=== PATIENT | male | born 1980 | race Caucasian/White ===

== ENCOUNTER → 2017-08-09 | Day surgery (SDC) | payer BC ==
[2017-08-02 14:38] VITALS: BMI 52.0
[~2017-08-09] VITALS: Ht 182.9 cm; Wt 172.7 kg
[~2017-08-09] MED LIST: ADVIN25/60 INH; AMLO10TA2 PO; BENA1TAB19 PO; CITA20TA4 PO; HYDR25TA4 PO; KETAMINE HCL INJ 50 MG/ML 10 ML VIAL ONE; LIDOCAINE HCL 2% 2 ML VIAL (20MG/ML) ONE; MIDAZOLAM HCL 1 MG/ML 2ML VIAL ONE; OMEP20CA9 PO; PROPOFOL IV EMULSION 10 MG/ML 20 ML VIAL IV ONE; SODIUM CHLORIDE 0.9% 500ML 500 ML IV ONE; VNTHFA/IN INH
[2017-08-09 13:55] VITALS: Ht 182.9 cm; Wt 172.7 kg
--- NOTE | 2017-08-09 13:58 | Endo History and Physical ---
History & Physical Date of Service: Aug 09, 2017. Chief Complaint: reflux Referring Physician: History of Present Illness reflux and gagging Past Medical History Gastrointestinal Disorder obesity Past Surgical History Hx Cardiac Surgery: No Hx Internal Defibrillator: No Hx Pacemaker: No Hx Abdominal Surgery: No Hx of Implantable Prosthesis: No Hx Post-Op Nausea and Vomiting: No Hx Cancer Surgery: No Hx Thoracic Surgery: No Hx Orthopedic: Yes (RT ACHILLES TENDON SURGERY) Hx Urinary Tract Surgery: No Family History None Social History Smoking Status: Never Smoker Hx Substance Use: No Hx Alcohol Use: Yes (OCCASIONALLY) Allergies Coded Allergies: No Known Allergies (Verified , 08/09/17) Current Medications Reported Home Medications Medications Dose Route/Sig Max Daily Dose Days Date Category Ventolin Hfa (Albuterol) 200 Puffs/55923 Mcg Aers 2-4 Puffs INH Q6H PRN 08/02/17 Reported Advair Diskus 250/50 60 Dose (Fluticasone Prop/Salmeterol) 1 Ea Aerp 1 Puff INH BID PRN 08/02/17 Reported Lotensin (Benazepril HCl) 40 Mg Tab 40 Mg PO QAM 08/02/17 Reported Citalopram Hydrobromide 20 Mg Tab 20 Mg PO QAM 06/07/15 Reported Norvasc (Amlodipine Besylate) 10 Mg Tab 10 Mg PO QAM 06/07/15 Reported Hctz (Hydrochlorothiazide) 25 Mg Tab 25 Mg PO QAM 06/07/15 Reported Vital Signs Weight (Kilograms): 172.73 Height (Feet): 6 Height (Inches): 0 Physical Exam General Appearance: WD/WN, no apparent distress Assessment and Plan EGD today
--- NOTE | 2017-08-09 14:34 | GI REPORT ---
Procedure Date: 08/09/2017 2:11 PM Procedure: Upper GI endoscopy Indications: Heartburn, Nausea, Regurgitation Medicines: Propofol per Anesthesia Complications: No immediate complications. Estimated blood loss: None. Estimated Blood Loss: Estimated blood loss: none. Procedure: Pre-Anesthesia Assessment: - Prior to the procedure, a History and Physical was performed, and patient medications, allergies and sensitivities were reviewed. The patient's tolerance of previous anesthesia was reviewed. - The risks and benefits of the procedure and the sedation options and risks were discussed with the patient. All questions were answered and informed consent was obtained. - Patient identification and proposed procedure were verified prior to the procedure by the physician and the nurse. The procedure was verified in the pre-procedure area in the procedure room. - Mental Status Examination: alert and oriented. Airway Examination: normal oropharyngeal airway and neck mobility. Respiratory Examination: clear to auscultation. CV Examination: normal. Abdominal Examination: bowel sounds present, abdomen soft and non-tender, no masses or organomegaly noted. - ASA Grade Assessment: III - A patient with severe systemic disease. After obtaining informed consent, the endoscope was passed under direct vision. Throughout the procedure, the patient's blood pressure, pulse, and oxygen saturations were monitored continuously. The scope was introduced through the mouth, and advanced to the second part of duodenum. The upper GI endoscopy was accomplished without difficulty. The patient tolerated the procedure well. Findings: The esophagus was normal. The stomach was normal. The examined duodenum was normal. Impression: - Normal esophagus. - Normal stomach. - Normal examined duodenum. - No specimens collected. Recommendation: - Follow an antireflux regimen. - Use Prilosec (omeprazole) 20 mg PO BID. - Return to primary care physician as previously scheduled. - Discharge patient to home. Dorothy Jang D.O. Dorothy Jang DO 08/09/2017 2:34:00 PM This report has been signed electronically. Note Initiated On: 08/09/2017 2:11 PM I attest to the content of the Intraoperative Record and orders documented therein, exceptions below
--- NOTE | 2017-08-09 14:44 | Discharge Instructions ---
Endoscopy Patient Instructions Date / Procedure(s) Performed Aug 09, 2017. EGD Allergy Information Coded Allergies: No Known Allergies (Verified , 08/09/17) Discharge Date / Findings Aug 09, 2017. normal EGD Medication Instructions Restart Stopped Medication(s): OK to resume home medications Take omeprazole 20 mg twice a day Provider Instructions Activity Restrictions - No exercising or heavy lifting for 24 hours. - Do not drink alcohol the day of the procedure. - Do not drive a car or operate machinery until the day after the procedure. - Do not make any important decisions or sign important papers in 24 hours after the procedure. Following Day: - Return to full activity which may include returning to work/school. STOP DRINKING SODA!!!!!!! Do not eat within 2-3 hours of lying down at night to sleep. Diet Start your diet with liquids and light foods (jello, soup, juice, toast). Then eat your usual diet if not nauseated. Treatment For Common After Affects For mild abdominal pain, bloating, or excessive gas: - Rest - Eat lightly - Lie on right side Follow-Up Information Follow-up with DR DIONISIO MELO as scheduled Anesthesia Information What You Should Know You have had a procedure that required some medicine to reduce anxiety and discomfort. This treatment is called moderate sedation. After receiving the treatment, you may be sleepy, but you will be able to breathe on your own. The effects of the treatment may last for several hours. Follow these instructions along with Activity/Diet recommendations noted above: * Do NOT do anything where dizziness or clumsiness would be dangerous. * Rest quietly at home today, then you can be up and about tomorrow. * Have a responsible person stay with you the rest of today. * You may have had an I.V. today. If so, you may take the dressing off later today. Recommendations Call your doctor if: * Trouble breathing * Continuous vomiting for more than 24 hours * Temperature above 101 degrees * Severe abdominal pain or bloating * Pain not relieved by pain medicine ordered * There is increased drainage or redness from any incision * A large amount of rectal bleeding greater than 2-3 tablespoons. (If you had a polyp/s removed or have hemorrhoids, a small amount of blood - from the rectum is to be expected.) * You have any unanswered questions or concerns. IN THE EVENT OF A SERIOUS EMERGENCY, GO TO THE NEAREST EMERGENCY ROOM Your discharge instructions were prepared by provider Dorothy Jang. Patient Instructions Signature Page Oh Abernathy Patient (or Guardian) Signature/Date: I have read and understand the instructions given to me by my caregivers. Caregiver/RN/Doctor Signature/Date: The above-named patient and/or guardian has received patient instructions on this date. + Original Patient Signature Page (only) stays with chart. Please make copy for patient.
--- NOTE | 2017-08-09 14:45 | Anesthesiology Progress Note ---
Anesthesia Post Op Note Date & Time Aug 09, 2017 at 14:45 Vital Signs Pain Intensity: 0 Vital Signs Past 12 Hours Date Time Temp Pulse Resp B/P (MAP) Pulse Ox O2 Delivery O2 Flow Rate FiO2 08/09/17 14:32 81 12 156/88 (110) 98 Oxymask 6 08/09/17 14:01 36.7 81 18 165/76 (105) 96 Room Air Notes Mental Status: alert / awake / arousable, participated in evaluation Pt Amnestic to Procedure: Yes Nausea / Vomiting: adequately controlled Pain: adequately controlled Airway Patency, RR, SpO2: stable & adequate BP & HR: stable & adequate Hydration State: stable & adequate Anesthetic Complications: no major complications apparent
[2017-08-09 15:02] VITALS: BP 131/76; PULSE 76; O2SAT 95
== END | disposition home or self-care (01) ==
LOC: C.GI 13:40
PROVIDERS: ATTEND Internal Medicine
DX: R12 Heartburn (principal); R11.2 Nausea with vomiting, unspecified; K21.9 Gastro-esophageal reflux disease without esophagitis; J45.909 Unspecified asthma, uncomplicated; E66.9 Obesity, unspecified; I10 Essential (primary) hypertension; Z68.43 Body mass index [BMI] 50.0-59.9, adult

== ENCOUNTER 2017-12-08 13:05 | Emergency (ER) | payer BC ==
[~2017-12-08] VITALS: Ht 182.9 cm; Wt 133.0 kg
[~2017-12-08 13:05] MED LIST changes: -BENA1TAB19 PO; +BENA1TAB53 PO; -KETAMINE HCL INJ 50 MG/ML 10 ML VIAL ONE; -LIDOCAINE HCL 2% 2 ML VIAL (20MG/ML) ONE; -MIDAZOLAM HCL 1 MG/ML 2ML VIAL ONE; -PROPOFOL IV EMULSION 10 MG/ML 20 ML VIAL IV ONE; -SODIUM CHLORIDE 0.9% 500ML 500 ML IV ONE
[2017-12-08 13:17] VITALS: Ht 182.9 cm; Wt 133.0 kg
[2017-12-08] MEDS ORDERED: DEXAMETHASONE SOD INJ 4 MG/ML VIAL IM STA (13:52)
[2017-12-08] MEDS ORDERED: MoRPHine SULFATE 10 MG/ML CARP/VIAL IM STA (13:52)
[2017-12-08] MEDS ORDERED: CYCLOBENZAPRINE HCL 10 MG TAB PO STA (13:52)
[2017-12-08] MEDS ORDERED: KETOROLAC TROMETHAMINE 60 MG/2 ML VIAL IM ONE (14:00)
[2017-12-08] MEDS ORDERED: DEXAMETHASONE **PF** INJ 10 MG/ML VIAL ONE (14:00)
[2017-12-08] MEDS ORDERED: OXYC1TAB3 PO ×2 (14:11→15:08)
[2017-12-08] MEDS ORDERED: METH4PAK PO ×2 (14:11→15:08)
[2017-12-08] MEDS ORDERED: CYCL10TA6 PO ×2 (14:11→15:08)
--- NOTE | 2017-12-08 14:12 | EMERGENCY ROOM VISIT NOTE ---
History First contact with patient: 13:36 Chief Complaint: BACK PAIN Stated Complaint: BACK PAIN,LEG GOING NUMB History of Present Illness The patient is a 37 year old male who presents to the Emergency Room with complaints of low back pain down his left leg for approximately one week. The patient was in the shower. He bent over and felt intense pain in his back. The pain radiates into his groin. he denies any numbness or tingling into the groin. No urinary or bowel incontinence. He denies any weakness in the legs. He denies any history of back pain. He has tried Tylenol with minimal relief. Review of Systems 6 system review negative. Please see pertinent positives in the history of present illness section. Past Medical/Surgical History Medical Problems: (1) Hypertension (2) Pustular rash Surgical Problems: (1) History of sinus surgery (2) History of tonsillectomy Family History FH: diabetes mellitus FH: hypertension Social History Smoking Status: Never Smoker Alcohol Use: occasionally Marital Status: Housing Status: lives with family Occupation Status: employed Current/Historical Medications Scheduled Amlodipine Besylate (Norvasc), 10 MG PO QAM Benazepril (Lotensin), 40 MG PO QAM Citalopram Hydrobromide (Citalopram Hydrobromide), 20 MG PO QAM Cyclobenzaprine Hcl (Flexeril), 10 MG PO TID Hydrochlorothiazide (Hctz), 25 MG PO QAM Methylprednisolone (Medrol Dosepak), 0 PO DAILY Omeprazole (Prilosec), 20 MG PO DAILY Scheduled PRN Albuterol Hfa (Ventolin Hfa), 2-4 PUFFS INH Q6H PRN for Shortness of Breath Fluticasone Prop/Salmeterol (Advair Diskus 250/50 60 Dose), 1 PUFF INH BID PRN for Shortness of Breath Oxycodone Ir (Roxicodone Ir), 1-2 TAB PO Q4H PRN for Pain Physical Exam Vital Signs Date Time Temp Pulse Resp B/P (MAP) Pulse Ox O2 Delivery O2 Flow Rate FiO2 12/08/17 15:37 79 16 194/128 94 12/08/17 14:26 75 18 202/129 96 Room Air 12/08/17 13:17 36.4 76 16 196/122 95 Room Air Physical Exam GENERAL: 37-year-old male, mildly uncomfortable in appearance, obese,, SKIN: The skin was without rashes, erythema, edema, or bruising. HEAD: Normocephalic atraumatic. NECK:. Cervical spine is nontender. No JVD. HEART: Regular rate and rhythm without murmurs gallops or rubs. LUNGS: Clear to auscultation bilaterally without wheezes, rales or rhonchi. No accessory muscle use. MUSCULOSKELETAL: No tenderness over the thoracic or lumbar spinous processes. Mild tenderness over the left SI joint. Negative straight leg test bilaterally. Sensation in the lower extremities is intact. DP pulse +2 bilaterally. Strength 5/5 throughout. NEURO: Patient was alert and oriented to person place and time. Normal sensation to touch. No focal neurological deficits. Medical Decision & Procedures ER Provider Diagnostic Interpretation: Lumbar spine x-rays IMPRESSION: 1. Mild anterior wedging of T12 and L1 with mild dextroscoliotic curvature. This may be congenital. This does not meet diagnostic criteria for Scheuermann disease. 2. No radiographic evidence of osseous neural foraminal narrowing. Electronically signed by: Manny Lester M.D. 12/08/2017 2:29 PM Dictated Date/Time: 12/08/2017 2:20 PM Medications Administered Medications (Trade) Dose Ordered Sig/Reid Route Start Time Stop Time Status Last Admin Dose Admin Ketorolac Tromethamine (Toradol Inj) 60 mg ONE ONCE IM 12/08/17 14:00 12/08/17 14:01 DC 12/08/17 14:03 60 MG Morphine Sulfate (MoRPHine SULFATE INJ) 8 mg NOW STAT IM 12/08/17 13:52 12/08/17 13:54 DC 12/08/17 14:03 8 MG Cyclobenzaprine HCl (Flexeril Tab) 10 mg NOW STAT PO 12/08/17 13:52 12/08/17 13:54 DC 12/08/17 14:02 10 MG Dexamethasone Sodium Phosphate (Dexamethasone Inj Pf) 10 mg STK-MED ONCE .ROUTE 12/08/17 14:00 12/08/17 14:01 DC 12/08/17 14:03 10 MG ED Course The patient was seen and examined He was medicated with morphine 8 mg, Toradol 60 mg and Decadron 10 mg IM. He was also given Flexeril 10 mg by mouth. Imaging was performed and reviewed Upon her evaluation, the patient's pain was much improved. We discussed the results of his workup. He voiced understanding. Discharge instructions were reviewed, and the patient was discharged in good condition Medical Decision Differential diagnosis: Spine fracture, ligamentous injury, subluxation, spondylolisthesis, spondylosis, herniated disc, contusion, muscle spasm This patient is a 37-year-old male that presents to the emergency department with complaints of low back pain radiating into the left groin and down his left leg. There is no significant injury. He experienced the pain when he bent over. On exam, he is neurovascularly intact. I do not suspect cauda equina syndrome. His imaging was performed. There was a slight wedge deformity at T12-L1. This does not correlate with his pain. 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 The patient had excellent pain relief in the emergency department. Believe he is stable to be discharged home. He will be sent home with a short course of narcotics, steroids and muscle relaxant. He was encouraged to follow-up with his primary care physician closely within the next 2-3 days. He agrees to return to the emergency department with any new, worsening or concerning symptoms. This chart was completed in part utilizing [employer] Speech Voice Recognition software. Attempts were made to minimize the grammatical errors, random word insertions, pronoun errors and incomplete sentences. Any formal questions or concerns about the content, text or information contained within the body of this dictation should be directly addressed to the provider for clarification. Medication Reconcilliation Current Medication List: was personally reviewed by me Blood Pressure Screening Patient's blood pressure: Elevated blood pressure Blood pressure disposition: Referred to PCP Impression Primary Impression: Low back pain Departure Information Dispostion Home / Self-Care Condition GOOD Prescriptions Cyclobenzaprine Hcl (FLEXERIL) 10 Mg Tab 10 MG PO TID for Muscle Spasms, #20 TAB Prov: Phyllis Sanders PA-C 12/08/17 Methylprednisolone (MEDROL DOSEPAK) 4 Mg Jono 0 PO DAILY, #1 PKT Prov: Phyllis Sanders PA-C 12/08/17 Oxycodone Ir (Roxicodone Ir) 5 Mg Tab 1-2 TAB PO Q4H Y for Pain, #15 TAB For Initial Treatment Prov: Phyllis Sanders PA-C 12/08/17 Referrals No Doctor, Assigned (PCP) Roney Murcia D.O. Patient Instructions Back Pain Relieve, My [facility] Additional Instructions You were evaluated in the emergency department for back pain. Please take note , that your blood pressure was also elevated. This should be rechecked by your primary care physician. Tylenol and ibuprofen for pain Ibuprofen 800 mg and/or Tylenol 1000 mg every 8 hours. You may also alternate these medications for more effective pain relief: Ibuprofen --4 HRS--> Tylenol --4 HRS--> ibuprofen --4 HRS--> Tylenol .... Oxycodone for severe pain Oxycodone Immediate Release (OxyIR) 5mg: Take 1-2 pills every four hours for pain. Avoid alcohol, operating machinery or dangerous equipment, working on ladders or roofs, DRIVING, or situations where being under the influence may be dangerous. It is recommended to use an [id number] stool softener such as Colace, 100mg twice daily while taking this medication to avoid constipation. Flexeril every 8 hours as needed for muscle spasms. Please do not drink alcohol or drive or taking this medication. No strenuous activity until your back is feeling better Return to the emergency department if you have any of the following symptoms: -Problems with urination -Weakness in your legs -Chest pain -Shortness of breath -Worsening pain Please follow-up with your primary care physician next 2-3 days. Work Instructions Return To Work: 1 day
--- NOTE | 2017-12-08 14:30 | DIAGNOSTIC IMAGING REPORT ---
L-SPINE MIN 4 VIEWS ROUTINE CLINICAL HISTORY: 37 years-old Male presenting with LBP down L leg. TECHNIQUE: Frontal, bilateral oblique, lateral, and coned in lateral views of the lumbar spine were obtained. COMPARISON: None. FINDINGS: Normal lumbar lordosis. Vertebral bodies maintain normal height and alignment with the exception of mild anterior vertebral body height loss of T12 and L1. No significant intervertebral disc height narrowing anteriorly at T12 or L1. Approximately 35% height loss at T12 and 25% height loss at L1. No subluxation. No intervertebral disc space narrowing. No radiographic evidence of osseous neural foraminal narrowing. No pars defects. Mild dextroscoliotic curvature centered at L3. IMPRESSION: 1. Mild anterior wedging of T12 and L1 with mild dextroscoliotic curvature. This may be congenital. This does not meet diagnostic criteria for Scheuermann disease. 2. No radiographic evidence of osseous neural foraminal narrowing. Electronically signed by: Manny Lester M.D. 12/08/2017 2:29 PM Dictated Date/Time: 12/08/2017 2:20 PM
[2017-12-08 15:37] VITALS: BP 194/128; PULSE 79; O2SAT 94
== END 2017-12-08 15:38 | disposition home or self-care (01) ==
LOC: C.EDB 13:06 → C.EDD 15:38
DX: M54.5 Low back pain (principal); I10 Essential (primary) hypertension; Z90.89 Acquired absence of other organs; Z98.890 Other specified postprocedural states; Z83.3 Family history of diabetes mellitus; Z82.49 Family history of ischemic heart disease and other diseases of the circulatory system; Z79.899 Other long term (current) drug therapy